=== PATIENT | male | born 1955 | race Caucasian/White ===

== ENCOUNTER 2023-06-29 13:40 | Outpatient (RCR) | payer OTHER ==
[~2023-06-29 13:40] MED LIST: ASPIRIN 81M81 MG/TA2 PO; CHOLESTEROL MED; MULTI VITAMINS1 TAB PO; VOLTAREN 75 DR75 MG PO
== END 2023-07-10 ==
LOC: WSOH
DX: S20.211D Contusion of right front wall of thorax, subsequent encounter (principal); S20.3 Other and unspecified superficial injuries of front wall of thorax; Y99.0 Civilian activity done for income or pay; I10 Essential (primary) hypertension; E78.5 Hyperlipidemia, unspecified

== ENCOUNTER → 2024-01-25 | Outpatient (CLI) | payer MEDICARE | LOC: COL.RAD 07:42 | DX: Z12.2 Encounter for screening for malignant neoplasm of respiratory organs (principal); R91.1 Solitary pulmonary nodule; F17.210 Nicotine dependence, cigarettes, uncomplicated ==